=== PATIENT | female | born 1990 | race Caucasian/White ===

== ENCOUNTER 2017-08-28 17:56 | Emergency (ER) | payer BC, OTHER ==
[2017-08-28 19:24] VITALS: BMI 33.3
--- NOTE | 2017-08-28 21:06 | OBHP ---
Datetime: 08/28/2017 20:59 IP Adm Impression: Term, intrauterine IP Admit Plan: Observation/Evaluation Admit Comment, IP Provider: The patient is a 26-year-old 2 para 1 at 38 weeks gestation natalio ent presents to labor and delivery reporting decreased movement 1 day patient reports patient baby's movement pattern has changed patient denies any vaginal bleeding any leakage of fluid any [place] contractions. Past medical history none Past surgical history none No known drug allergies Social history denies alcohol alcohol tobacco use Obstetrical history patient states she tested positive for Z, she when she went [facility] states she 's been monitored with serial ultrasounds and the results within normal. Review of systems patient denies headache chest pain shortness of breath palpitations nausea vomit ing diarrhea vaginal bleeding dysuria he holds TZ bruisibility musculoskeletal or neurological compla ints Vital signs stable afebrile Physical exam seen on its Intrauterine at 38 weeks Patient reports movement after observation heart rate activity reactive decelerations Tocometer occasional uterine contractions Patient discharged home with labor precautions kick counts Pelvic Type - PN: Adequate Extremities - PN: Normal Abdomen - PN: Normal Back - PN: Normal Breast - PN: Not Done Lungs - PN: Normal Heart - PN: Normal Thyroid - PN: Normal Neurologic - PN: Normal HEENT - PN: Normal General - PN: Normal Presentation-Admit: Vertex FHR - Baseline A Provider: 145 Gestation - Est Wks by US: 38.0 Pool Provider: Negative EGA AdmitDate IP: 38.6 Vital Signs Provider: Reviewed IP Chief Complaint: Decreased movement NICHD Variability Prov Fetus A: Moderate 6-25bpm NICHD Accel Fetus A IP Provider: [id number] FHR Category Provider Fetus A: Category I NICHD Decel Fetus A IP Provider: None Dilatation, Provider: 1 Effacement, Provider: 50 Station, Provider: -2 Genitourinary Exam: Normal DTRs - PN: Normal
[2017-08-29 00:18] VITALS: BP 151/86; PULSE 77; RESP 18; TEMP 98.4; O2SAT 100
== END 2017-08-28 19:42 | disposition home or self-care (01) ==
LOC: H.EROB2 17:56 → H.L&D 18:21 → H.EROB2 19:42
DX: O36.8131 Decreased fetal movements, third trimester, fetus 1 (principal); Z3A.38 38 weeks gestation of pregnancy

== ENCOUNTER 2017-09-02 10:50 | Emergency (ER) | payer BC, OTHER ==
[2017-09-02 11:21] VITALS: BMI 33.6
--- NOTE | 2017-09-02 13:34 | OBHP ---
Datetime: 09/02/2017 13:15 IP Adm Impression: Term, intrauterine IP Admit Plan: Discharge home Admit Comment, IP Provider: The patient is a 26-year-old 2 para 1 at 39.4 weeks gestation ba sed on LMP 11/29/16, consistent with US at 13.1 weeks GA patient presents to labor and delivery with c omplaints of vaginal bleeding that begins at 4-6 am this morning. Pt reports seeing clots of blood an d its similar to her menses. Denies seening bright red blood. Denies any trauma to pelvic/abdominal a lucho. Last coitus 2 months ago. Pt reports + movement and +contraction every 15 mintues. Denies l eakage of fluids. Denies fever, chills, nausea, vomiting or dizziness. PNC: Dr aDfne Valle in [place], [place], has appointment on 09/03/17. Obstetrical history: patient states she tested positive for Zika, she when she went [facility] states she's been monitored with serial ultrasounds and the results within normal. Has one on 06/2016 w/o any complication. Past medical history: none Past surgical history: none Social history: denies alcohol alcohol tobacco use Allergies: NKDA. PE: see above Addendum by Dr. Ernst: Patient seen independently and I agree with the above. patient is a @ 39.4 wks with vaginal bleeding, no leaking, +FM, occasional contractions. Patient is 2/40/-3 on ex am, was 1cm earlier this week. FIU=011 mod irena, +accels, no decels, TOCO = ctxning irregularly with i rritability inbetwen. patient is ruled out for active labor, comfortable. Discharge home with labor p recautions Pelvic Type - PN: Adequate Extremities - PN: Normal Abdomen - PN: Normal Back - PN: Normal Breast - PN: Not Done Lungs - PN: Normal Heart - PN: Normal Thyroid - PN: Not Done Neurologic - PN: Normal HEENT - PN: Normal General - PN: Normal FHR - Baseline A Provider: 140 Membranes, Provider: Intact Contraction Comments Provider: q8-10 min Comments, ACOG Physical Exam: SVE: 2cm/40/-3 Pool Provider: Negative IP Hx Assessment: The History has been Reviewed and is Current EGA AdmitDate IP: 39.4 Vital Signs Provider: Reviewed IP Chief Complaint: Vaginal bleeding NICHD Variability Prov Fetus A: Moderate 6-25bpm NICHD Accel Fetus A IP Provider: [id number] FHR Category Provider Fetus A: Category I NICHD Decel Fetus A IP Provider: None Dilatation, Provider: 2 Effacement, Provider: 40 Station, Provider: -3 Genitourinary Exam: Normal
--- NOTE | 2017-09-02 13:36 | OBDCSUM ---
Datetime: 09/02/2017 13:13 Discharged to, Provider: Home Follow up at, Provider: [facility] Disch Instr Activity: Normal activity Disch Instr Diet: Regular Discharge Time: 09/02/2017 13:13 Follow up in weeks, Provider: [id number] Disch Referrals: None Discharge Diagnosis Prov Other: false labor
[2017-09-02 17:53] VITALS: BP 132/87; PULSE 98; RESP 16; TEMP 98.7; O2SAT 100
== END 2017-09-02 13:15 | disposition home or self-care (01) ==
LOC: H.EROB2 10:50
DX: O46.93 Antepartum hemorrhage, unspecified, third trimester (principal); Z3A.39 39 weeks gestation of pregnancy